=== PATIENT | male | born 1990 | race Caucasian/White ===

== ENCOUNTER 2016-06-15 09:27 | Emergency (ER) | payer SELFPAY ==
--- NOTE | 2016-06-15 11:44 | ED NURSING NOTES ---
Clinical Report - Nurses [facility] [address] [place] [address] 06/15/2016 9:27 Patient: YARED JAY TRIAGE Triage time 09:30. Acuity: LEVEL 3. Chief Complaint: DIZZINESS and NEAR-SYNCOPE. Alert. FARTUN COMA SCORE: Fartun Coma Scale: 15- eyes open spontaneously (4); best verbal response- oriented x 4 (5); best motor response- obeys commands (6). --09:38 Genie Preciado R.N. 09:30 06/15/16. BP: 106/64. HR: 84. RR: 20. O2 saturation: 98%. Temp: 98.4 F. Pain level now 5/10. --09:38 Genie Preciado R.N. Weight: 65.7 kg. Height/Length: 69 inches. BMI: 21.4. --09:38 Genie Preciado R.N. Medications Suboxone Sublingual. --09:32 Genie Preciado R.N. Allergies Penicillins. --09:32 Genie Preciado R.N. History Arrived by EMS, and from work. Historian: patient. This started just prior to arrival. ( patient had near syncope episode while at work. They just finished loading truck and patient was just sitting in the truck when suddenly got really dizzy and really hot). He has had nausea, a headache and weakness and experienced syncope. 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 Has used on and off for the past 9 years. Trying to get clean on his own. Took saboxone he had left over). SURGERY HX: ( rt arm re construction). SOCIAL HX: Current every day heavy tobacco smoker (cigarette)- less than 1 pack per day. History of drug use: heroin, methamphetamines. Recently used drugs days ago. (recently 4). He has not traveled outside the [place] (hep c positive). --09:38 Genie Preciado R.N. PROBLEMS: Narcotic Dependence. --09:34 Genie Preciado R.N. PHYSICAL ASSESSMENT To room via stretcher. GENERAL / NEURO / PSYCH: Oriented X 4. Appears anxious. Alert. Speech within normal limits. HEENT: Pupils equal, round and reactive to light. RESPIRATORY: Breath sounds within normal limits. Respirations not labored. CVS: Normal sinus rhythm noted. Capillary refill less than 2 seconds. GI / : Abdomen soft and nontender. SKIN: ( scabs all over from picking). --09:39 Genie Preciado R.N. NURSING PROGRESS NOTES Patient gowned. Head of bed elevated. Two patient identifiers checked. Call light placed in reach. Side rails up x 2. Bed placed in lowest position. Brakes of bed on. Patient ready for evaluation- chart flagged and ED physician notified. --09:41 Genie Preciado R.N. 09:50 06/15/2016 One (1) unsuccessful IV access attempt including the right forearm. Applied bandaid and manual pressure. --09:50 Geetha Jacobson R.N. 09:55 06/15/2016 Site #1 started via IV in the left forearm with an 22g angiocath; one attempt. Blood drawn: rainbow set. Saline lock flushed. --10:00 Genie Preciado R.N. 09:56 06/15/2016 Started bag #1 1000 mL IV Fluids IV NS (Saline); at 1000 mL/hr via site #1 --10:01 Genie Preciado R.N. EKG time: (0939 AM). EKG was performed by a tech and shown to the ED physician. --10:04 Genie Preciado R.N. <<STRICKEN ENTRY-- 10:07 06/15/16. --10:09 Magali Fitzgerald --END STRIKE>> Correction --10:11 Magali Fitzgerald 10:07 06/15/16. BP: 106/56 taken while lying. HR: 90. --10:09 Magali Fitzgerald <<STRICKEN ENTRY-- 10:09 06/15/16. --10:09 Magali Fitzgerald --END STRIKE>> Correction --10:11 Magali Fitzgerald 10:17. BP: 113/57 taken while sitting. HR: 89. --10:09 Magali Fitzgerald 10:09 06/15/16. BP: 111/60 taken while standing. HR: 95. --10:11 Magali Fitzgerald 10:46 06/15/16. ( patient unable to give urine sample. Given water per Physician s verbal consent). --10:46 Genie Preciado R.N. 11:06 06/15/2016 IV Fluids IV NS Discontinued: bag #1 infused. Total amount infused: 1000 mL. IV patency established IV site checked: no pain, redness, or swelling IV flushed thoroughly. --11:16 Genie Preciado R.N. 11:23 06/15/16. Patient ID band checked for patient name and birthdate: patient confirmed urine collected with return of yellow-colored clear urine; sample sent to lab. Specimen labeled in the presence of the patient. ( patient up to use bathroom. Back in bed now, resting. Will cont to monitor). --11:23 Genie Preciado R.N. 10:45 06/15/16. BP: 115/60. HR: 80. RR: 16. O2 saturation: 100%. Pain level now: 0/10. --11:27 Genie Preciado R.N. 11:29 06/15/16. --11:29 Genie Preciado R.N. 11:15 06/15/16. BP: 95/43 (regular adult cuff) taken on the right arm, while lying. HR: 78. RR: 17. O2 saturation: 99%. Pain level now: 0/10. --11:29 Genie Preciado R.N. DISPOSITION / DISCHARGE 11:46 06/15/2016 Site #1 removed upon discharge. Catheter intact. --11:51 Edwin Hoffmann R.N. 11:51 06/15/16. Condition at departure: improved. The goals identified in the patient's plan of care were met. No learning barriers present. Discharge instructions provided and reviewed with the patient. Reviewed warnings. Reviewed medication(s). Treatments reviewed. Patient verbalized understanding. Written instructions provided in Sierra Leonean. The patient was discharged by the physician. He was discharged home. He left the Emergency Department ambulatory and via private vehicle. FALL RISK ASSESSMENT: Fall risk assessment completed. No fall risk identified. --11:51 Edwin Hoffmann R.N. 11:51 06/15/16. BP: 102/68. HR: 72. RR: 16. O2 saturation: 99% on room air. Temp: 98.1 F (oral). --11:51 Edwin Hoffmann R.N. 11:52 06/15/16. Departure time: 11:52. --11:52 Edwin Hoffmann R.N. Locked/Released at 06/15/2016 11:52 by Edwin Hoffmann R.N.
--- NOTE | 2016-06-15 11:44 | ED CLINICAL REPORT ---
Clinical Report - Physicians/Mid Levels [facility] [address] [place] [address] 06/15/2016 9:27 Patient: YARED JAY Time Seen: 925. Arrived- By ambulance. Historian- patient. HISTORY OF PRESENT ILLNESS Chief Complaint: NEAR-SYNCOPE. Is no longer unconscious. He has recovered. This occurred today. It was abrupt in onset and has been intermittent. Event was witnessed. The patient had preceding symptoms of light-headedness. No preceding symptoms of chest pain or abdominal pain. Did not feel faint or collapse. No loss of consciousness, seizure activity, incontinence or apnea noted. Had a single episode. The episode was brief and lasted minutes. No injuries noted. He currently has constant, generalized weakness. (states he is trying to get clean from heroin and meth. states the last time he used was about 4 days ago. Has nausea, vomiting, and diarrhea. Has not been eating/drinking well due to the symptoms.). Similar symptoms previously: Several times. Recent medical care: Not recently seen/assessed. REVIEW OF SYSTEMS No chest pain, palpitations, black stools, bloody stools or skin rash. All systems otherwise negative, except as recorded above. PAST HISTORY See nurses notes. SOCIAL HISTORY Never smoker. History of drug use. Is a recovering addict. No alcohol use. No recent travel. Is a local resident. FAMILY HISTORY (no family history of sudden or premature heart problems). ADDITIONAL NOTES The nursing notes have been reviewed. PHYSICAL EXAM Vital Signs: 06/15/2016 09:30 BP: 106/64. HR: 84. RR: 20. O2 saturation: 98%. Temp: 98.4 F. Blood pressure normal. Oxygen saturation normal. Appearance: Alert. No acute distress. Eyes: Pupils equal, round and reactive to light. No nystagmus. Extraocular movements normal. ENT: Normal ENT inspection. TM's normal. Mildly dry mucous membranes present. Pharynx normal. Neck: Normal inspection. Neck supple. CVS: Normal heart rate and rhythm. Heart sounds normal. Pulses normal. No cardiac murmur. Respiratory: No respiratory distress. Breath sounds normal. No rales, wheezes or rhonchi. Abdomen: Soft and nontender. No organomegaly. Skin: Skin warm and dry. Normal skin color. No rash. Normal skin turgor. Extremities: Extremities exhibit normal ROM. No lower extremity edema. Neuro: Alert. Oriented X 3. Mood/affect normal. Cranial nerves normal (as tested). No cerebellar findings. No motor deficit. No sensory deficit. Reflexes normal. LABS, X-RAYS, AND EKG EKG: No acute process. No acute ischemia. Normal EKG. Normal sinus rhythm. Rate: 85. Normal P waves. Normal PETE. Normal QRS complex. Normal axis. Normal ST and T waves, QT and QTc. The study has been interpreted contemporaneously. The study has been independently viewed by me. The EKG appears to be a good tracing. Laboratory Tests: UA-Culture if indicated: (MAYRA: 06/15/2016 00:01) ( [facility] 06/15/2016 11:35) Final results Test Result Flag Units (Reference) URINE COLOR YELLOW URINE APPEARANCE CLEAR URINE GLUCOSE NEGATIVE (NEGATIVE) URINE BILIRUBIN NEGATIVE (NEGATIVE) URINE KETONE NEGATIVE (NEGATIVE) URINE SPECIFIC GRAVITY <= 1.005 L (1.010-1.030) URINE PH 6.0 (5.0-8.0) URINE PROTEIN NEGATIVE (NEGATIVE) URINE UROBILINOGEN 0.2 EU/dL (0.2-1.0) URINE NITRITE NEGATIVE (NEGATIVE) URINE BLOOD NEGATIVE (NEGATIVE) URINE LEUK ESTERASE NEGATIVE (NEGATIVE) URINE RBC NONE SEEN rbc/hpf (0-1) URINE WBC NONE SEEN wbc/hpf (0-1) URINE EPITHELIAL CELLS NONE SEEN EPI/hpf (0-5) URINE BACTERIA NONE SEEN (NONE SEEN) URINE COMMENT CULT NOT INDICATED URINE CULTURES ARE SET-UP BASED ON THE FOLLOWING CRITERIA:POSITIVE NITRITEPOSITIVE LEUKOCYTE ESTERASEGREATER THAN 10 WHITE BLOOD CELLSMODERATE (2+) OR GREATER BACTERIA CBC w Diff: (MAYRA: 06/15/2016 09:55) ( [facility] 06/15/2016 10:10) Final results Test Result Flag Units (Reference) WHITE BLOOD COUNT 9.1 K/uL (4.5-11.5) RED BLOOD COUNT 5.12 M/uL (4.50-5.90) HEMOGLOBIN 15.2 gm/dL (13.5-17.5) HEMATOCRIT 45.6 % (41.0-53.0) MEAN CELL VOLUME 89 fL (80-100) MEAN CORPUSCULAR HGB 30 pg (26-34) MEAN CORPUSCULAR HGB CONC 33 g/dL (31-37) RED CELL DISTRIBUTION WIDTH 12.6 % (11.6-14.8) PLATELET COUNT 257 K/uL (150-400) NEUTROPHIL % 68.8 % (50-75) LYMPH % 19.7 L % (25-40) MONO % 8.8 % (3-14) EOSINOPHIL % 2.2 % (0-4) BASOPHIL % 0.5 % (0-2) Urine Drug Screen: (MAYRA: 06/15/2016 00:01) ( MsgRcvd 06/15/2016 11:38) Final results Test Result Flag Units (Reference) AMPHETAMINE/METHAMPHETAMINE NEGATIVE (NEGATIVE) BARBITURATE NEGATIVE (NEGATIVE) BENZODIAZEPINE NEGATIVE (NEGATIVE) CANNABINOID POSITIVE H (NEGATIVE) COCAINE NEGATIVE (NEGATIVE) ECSTASY NEGATIVE (NEGATIVE) METHADONE NEGATIVE (NEGATIVE) OPIATE NEGATIVE (NEGATIVE) The urine drug screen is a qualitative screening test fordrug overdose and abuse. All screen results should beconsidered as presumptive.Drugs screened for are as follows:BenzodiazepinesCocaineAmphetamines/MetamphetaminesTHC (Tetrahydrocannabinol)OpiatesBarbituratesEcstasyMethadonePositive results are unconfirmed. For confirmation, notifythe lab for the specimen to be sent to the reference lab.All confirmations must be performed by a differentmethodology.The ingestion of natural herbal and plant productscontaining Ephedra/Ephedra metabolites can produce in urineone or more substances capable of cross reacting withamphetamine/methamphetamine immunoassays. These testsprovide a preliminary result only. A more specificalternative chemical method must be used to obtain aconfirmed analytical result. CMP: (MAYRA: 06/15/2016 09:55) ( MsgRcvd 06/15/2016 10:39) Final results Test Result Flag Units (Reference) GLUCOSE 154 H mg/dL (70-110) BUN 10 mg/dL (7-18) CREATININE 1.0 mg/dL (0.6-1.3) Estimated GFR >60 mL/min Estimated GFR- >60 mL/min Note: Persistent reduction over 3 months in eGFR<60 mL/min/1.73 m2 defines CKD. Patients with eGFR values>=60 mL/min/1.73 m2 may also have CKD if evidence ofpersistent proteinuria. Additional information may be foundat www.kidney.org. SODIUM 142 mmol/L (136-145) POTASSIUM 3.4 L mmol/L (3.5-5.1) CHLORIDE 104 mmol/L (98-107) CARBON DIOXIDE 27 mmol/L (21-32) CALCIUM 8.5 mg/dL (8.5-10.1) TOTAL PROTEIN 7.1 g/dL (6.4-8.2) ALBUMIN 3.0 L g/dL (3.3-5.0) BILIRUBIN, TOTAL 0.5 mg/dL (0.0-1.0) ALKALINE PHOSPHATASE 87 U/L (46-116) AST (SGOT) 21 U/L (15-37) ALT (SGPT) 28 U/L (12-78) . PROGRESS AND PROCEDURES Course of Care: the patient is a pleasant 25-year-old male with past medical history significant for substance abuse who is trying to come clean. Patient reports that he last used proximally 4 days ago. Patient reports nausea, vomiting, diarrhea. At this time I'll actually abnormality or imbalance or dehydration would be the most likely diagnosis for the patient's reported near syncopal event. No injury noted. Patient is nontoxic in appearance. Vital signs are noted to be unremarkable here in the emergency department. Patient is agreeable to treatment plan. IV fluids have also been ordered. Work up is noted to be unremarkable. A lecture was noted to be within normal limits. Glucose is slightly elevated at just [id number]. No evidence of ketosis. Patient is monitored here in the emergency department. Patient has been sinus without any abnormalities throughout his stay here. EKG is unremarkable. Do not fill patient is being admitted to the hospital require further ento. Feel symptoms are due to dehydration and withdrawal symptoms. Discussed the patient is workup here in the emergency department including diagnosis, home care, follow-up, and return precautions. All questions have been answered. The patient expressed understanding of these instructions and was agreeable to them. I plotted the patient's efforts in trying to come clean from substance abuse. Cautioned patient in regards to methadone and Suboxone. Patient states that he does not want to be on methadone or Suboxone. Patient states He has tried those in the past and does not like it. Disposition: Discharged. Condition: good. CLINICAL IMPRESSION Near syncope .12 lead EKG performed. (acute). Moderate nausea with vomiting. Diarrhea (acute). Mild dehydration (acute). Narcotic withdrawal (acute). INSTRUCTIONS Warnings: GENERAL WARNINGS: Return or contact your physician immediately if your condition worsens or changes unexpectedly, if not improving as expected, or if other problems arise. SPECIFICALLY, return if you develop chest pain, fluttering sensation in your chest, lightheadedness, fainting, numbness, weakness or extreme fatigue. Your Current Medications: CONTINUE TAKING THE FOLLOWING MEDICATIONS: Suboxone Sublingual. Prescription Medications: Zofran (orally disintegrating tablets) 4 mg: take 1 orally every 8 hours as needed for nausea and vomiting. Dispense ten (10). No refill. Substitution is permissible. OTC Medications: Imodium (available over the counter): take according to label instructions. Follow-up: Return to the emergency department as needed. Follow up with your doctor in three days. Reason for referral: recheck today's concerns. Summary of care provided to patient via paper. Screening today revealed the patient's blood pressure to be in the normal range. The patient should follow up with a primary care provider for blood pressure management. Understanding of the discharge instructions verbalized by patient. (Electronically signed by Jer Louis Dr. 06/15/2016 11:51)
--- NOTE | 2016-06-15 11:44 | ED ORDER SUMMARY ---
..... Patient: YARED JAY OrderSheet [facility] VisitID: [id number] [address] [place] [address] 25y, M Registration Date/Time: 06/15/2016 ORDER SHEET Weight: 65.7 kg Allergies: Penicillins GENERAL ORDERS: Step Down Specialist (Continuous) (dizzy) (:06/15/2016 Darrius Guajardo) (Ack 9:38 LNations ER Tech1) (9:40 KHoerner) CBC w Diff Urgent (:06/15/2016 Darrius Guajardo) (Ack 9:38 LNations ER Tech1) (11:19 KHoerner) CMP Urgent (:06/15/2016 Darrius Guajardo) (Ack 9:38 LNations ER Tech1) (11:19 KHoerner) UA-Culture if indicated Urgent (:06/15/2016 Darrius Guajardo) (Ack 9:38 LNations ER Tech1) (11:19 KHoerner) Urine Drug Screen Urgent (:06/15/2016 Darrius Guajardo) (Ack 9:38 LNations ER Tech1) (11:19 KHoerner) EKG - ER Stat (:06/15/2016 Darrius Guajardo) (Ack 9:38 LNations ER Tech1) (9:40 KHoerner) Pulse oximeter (:06/15/2016 Darrius Guajardo) (Ack 9:38 LNations ER Tech1) (9:40 KHoerner) Vitals - Orthostatic (:06/15/2016 Darrius Guajardo) (Ack 9:38 LNations ER Tech1) (10:07 KHoerner) MEDICATION ORDERS: IV FLUIDS: IV NS : initial bolus 1000 mL (1000 mL/hr), then none - for X1 (NOW) (:06/15/2016 Darrius Guajardo) (Ack 9:47 TChapman R.N.) (10:01 TChapman R.N.) ORDER SHEET NOTES: [Electronically signed by Jer Louis Dr. (11:51 06/15/2016)] [Electronically signed by Edwin Hoffmann R.N. (11:52 06/15/2016)] [Electronically locked/signed by Edwin Hoffmann R.N. (11:52 06/15/2016)]
--- NOTE | 2016-06-15 11:44 | ED ORDER SUMMARY ---
..... Patient: YARED JAY OrderSheet [facility] VisitID: [id number] [address] [place] [address] 25y, M Registration Date/Time: 06/15/2016 ORDER SHEET Weight: 65.7 kg Allergies: Penicillins GENERAL ORDERS: Pediatric Allergist (Continuous) (dizzy) (:06/15/2016 Darrius Guajardo) (Ack 9:38 LNations ER Tech1) (9:40 KHoerner) CBC w Diff Urgent (:06/15/2016 Darrius Guajardo) (Ack 9:38 LNations ER Tech1) (11:19 KHoerner) CMP Urgent (:06/15/2016 Darrius Guajardo) (Ack 9:38 LNations ER Tech1) (11:19 KHoerner) UA-Culture if indicated Urgent (:06/15/2016 Darrius Guajardo) (Ack 9:38 LNations ER Tech1) (11:19 KHoerner) Urine Drug Screen Urgent (:06/15/2016 Darrius Guajardo) (Ack 9:38 LNations ER Tech1) (11:19 KHoerner) EKG - ER Stat (:06/15/2016 Darrius Guajardo) (Ack 9:38 LNations ER Tech1) (9:40 KHoerner) Pulse oximeter (:06/15/2016 Darrius Guajardo) (Ack 9:38 LNations ER Tech1) (9:40 KHoerner) Vitals - Orthostatic (:06/15/2016 Darrius Guajardo) (Ack 9:38 LNations ER Tech1) (10:07 KHoerner) MEDICATION ORDERS: IV FLUIDS: IV NS : initial bolus 1000 mL (1000 mL/hr), then none - for X1 (NOW) (:06/15/2016 Darrius Guajardo) (Ack 9:47 TChapman R.N.) (10:01 TChapman R.N.) ORDER SHEET NOTES: [Electronically signed by Jer Louis Dr. (11:51 06/15/2016)] [Electronically signed by Edwin Hoffmann R.N. (11:52 06/15/2016)] [Electronically locked/signed by Edwin Hoffmann R.N. (11:52 06/15/2016)]
--- NOTE | 2016-06-15 11:52 | ED DISCHARGE INSTRUCTIONS ---
Patient: YARED JAY General Instructions Located Within [facility] VisitID: [id number] [place] [address] 25y, M Registration Date/Time: 06/15/2016 Near syncope .12 lead EKG performed. (acute). Moderate nausea with vomiting. Diarrhea (acute). Mild dehydration (acute). Narcotic withdrawal (acute). INSTRUCTIONS Warnings: GENERAL WARNINGS: Return or contact your physician immediately if your condition worsens or changes unexpectedly, if not improving as expected, or if other problems arise. SPECIFICALLY, return if you develop chest pain, fluttering sensation in your chest, lightheadedness, fainting, numbness, weakness or extreme fatigue. Your Current Medications: CONTINUE TAKING THE FOLLOWING MEDICATIONS: Suboxone Sublingual. Prescription Medications: Zofran (orally disintegrating tablets) 4 mg: take 1 orally every 8 hours as needed for nausea and vomiting. Dispense ten (10). No refill. Substitution is permissible. OTC Medications: Imodium (available over the counter): take according to label instructions. Follow-up: Return to the emergency department as needed. Follow up with your doctor in three days. Reason for referral: recheck today's concerns. Summary of care provided to patient via paper. Screening today revealed the patient's blood pressure to be in the normal range. The patient should follow up with a primary care provider for blood pressure management. Understanding of the discharge instructions verbalized by patient. ADDITIONAL INFORMATION Near-Fainting:Uncertain Cause Fainting (syncope) is a temporary loss of consciousness ("passing out"). It occurs when blood flow to the brain is reduced. Near-fainting ("near-syncope") is like fainting, but you do not fully "pass out." The common minor causes of near fainting include sudden fear, pain, emotional stress, overexertion, or quickly standing up after sitting or lying for a long time. The more serious causes for near fainting are due to either a very slow or very fast heart beat, dehydration, anemia, blood loss, problems related to the heart, or taking too much high blood pressure medicine. The exact cause of your episode is not certain. More tests may be required. Therefore, it is important that you follow up with your doctor as advised. Home Care: 1) Rest today. Resume your normal activities as soon as you are feeling back to normal. 2) If you become light-headed or dizzy, lie down right away or sit with your head between your knees. 3) Because we do not know the exact cause of your near fainting spell, another spell could occur without warning. Therefore, do not drive a car or use dangerous equipment. D o not take a bath alone (use a shower instead). Do not swim alone. You can resume these activities when your doctor says that you are no longer in danger of having a near fainting spell. 4) Stay well hydrated by drinking enough fluid each day. Follow Up with your doctor as instructed. Get Prompt Medical Attention if any of the following occur: -- Another fainting spell occurs, and it is not explained by the common causes listed above -- Chest, arm, neck, jaw, back or abdominal pain -- Shortness of breath -- Weakness, tingling or numbness in one side of the face, one arm or leg -- Slurred speech, confusion, trouble walking or seeing -- Seizure -- Blood in vomit, stools (black or red color) -- (In women) unexpected vaginal bleeding Dehydration (Adult) Dehydration occurs when your body loses too much fluid. This may be the result of vomiting a lot or from diarrhea,sweating a lot, or a high fever. It may also happen if you dont drink enough fluid when youre sick. Misuse of diuretics (water pills) can also be a cause. Symptoms include thirst and feeling dizzy, weak, fatigued, or very drowsy. The diet described below is usually enough to treat most cases. Sometimes you may needmedicine. Home Care Follow these guidelines for home care: Drink at least 12 8-ounce glasses of fluid every day to overcome the dehydration. Fluid may include water; orange juice; lemonade; apple, grape, and cranberry juice; clear fruit drinks; electrolyte replacement and sports drinks; and teas and coffee without caffeine. If you have been diagnosed with a kidney disease, ask your doctor how much and what types of fluids you should drink to prevent dehydration. If you have kidney disease, drinking too much fluid can cause it build up in the your body and be dangerous to your health. If you have fever, muscle aching, or headache from a viral syndrome, you may useacetaminophen or ibuprofen, unless another medicine was prescribed for this.If you have chronic liver or kidney disease or ever had a stomach ulcer or GI bleeding, talk with your doctor before using these medicines. Don't take aspirin if you are younger than 18 and are ill with a fever.Aspirin raises the chance forsevere liver injury. Follow-up care Follow up with your health care provider if you don't get better in the next 24 to 48 hours. When to seek medical care Get prompt medical attention if any of theseoccur: Continued vomiting (cant keep liquids down) Frequent diarrhea (more than 5 times a day); blood (red or black color) or mucus in diarrhea Blood in vomit or stool Swollen abdomen or increasing abdominal pain Weakness, dizziness, or fainting Unusually drowsy or confused Reduced urine output or extreme thirst Fever of 100.4 F (38 C) oral or higher that does not get better with fever medication Diarrhea, Uncertain Cause (Adult, Report Pending) Diarrhea has several possible causes. Commonstomach fluis caused by a virus. Food poisoning, bacteria or parasites are other causes for diarrhea. Only diarrhea caused by bacteria or parasites requires treatment with an antibiotic. Diarrhea from a virus or food poisoning improves with simple home treatment. A stool sample is needed to make the diagnosis of an infection with bacteria or parasites. Up to three stool specimens may be required to diagnose This may take up to two days to get the result. It may be necessary to wait until the stool test is complete to make the diagnosis and select the best antibiotic to prescribe. Home Care: If symptoms are severe, rest at home for the next 24 hours or until you are feeling better. You may use acetaminophen (Tylenol) or ibuprofen (Motrin, Advil) to control fever, unless another medicine was prescribed. [NOTE: If you have chronic liver or kidney disease or ever had a stomach ulcer or GI bleeding, talk with your doctor before using these medicines.] (Aspirin should never be used in anyone under 18 years of age who is ill with a fever. It may cause severe liver damage.) Avoid tobacco, caffeine and alcohol, which may worsen your symptoms. If anti-diarrhea medicine was prescribed, take this only as directed. Sometimes anti-diarrhea medicine can make your condition worse if the cause is an infectious diarrhea. Therefore, anti-diarrhea medicine should not be taken for this condition unless advised by your doctor. During The First 12-24 Hours follow the diet below: BEVERAGES: Sport drinks like Gatorade, soft drinks without caffeine; ty jose, mineral water (plain or flavored), decaffeinated tea and coffee. SOUPS: Clear broth, consomm and bouillon DESSERTS: Plain gelatin (Jell-O), popsicles and fruit juice bars. During The Next 24 Hours you may add the following to the above: Hot cereal, plain toast, bread, rolls, crackers Plain noodles, rice, mashed potatoes, chicken noodle or rice soup Unsweetened canned fruit (avoid pineapple), bananas Limit fat intake to less than 15 grams per day by avoiding margarine, butter, oils, mayonnaise, sauces, gravies, fried foods, peanut butter, meat, poultry and fish. Limit fiber; avoid raw or cooked vegetables, fresh fruits (except bananas) and bran cereals. Limit caffeine and chocolate. No spices or seasonings except salt. During The Next 24 Hours Gradually resume a normal diet, as you feel better and your symptoms lessen. Follow Up with your doctor or as advised if you are not improving over the next two days. If you were asked to bring a specimen from home, bring the sample on the day of collection. You may call in 2 days (or as directed) for the results. Get Prompt Medical Attention if any of the following occur: Increasing abdominal pain or constant lower right abdominal pain Continued vomiting (unable to keep liquids down) Frequent diarrhea (more than 5 times a day) Blood in vomit or stool (black or red color) Reduced oral intake Dark urine, reduced urine output Weakness, dizziness, fainting Drowsiness, confusion, stiff neck or seizure Fever of 100.4F (38C) oral or higher, not better with fever medication New rash Ondansetron Oral disintegrating tablet What is this medicine? ONDANSETRON (on [employer] se kirsten) is used to treat nausea and vomiting caused by chemotherapy. It is also used to prevent or treat nausea and vomiting after surgery. How should I use this medicine? These tablets are made to dissolve in the mouth. Do not try to push the tablet through the foil backing. With dry hands, peel away the foil backing and gently remove the tablet. Place the tablet in the mouth and allow it to dissolve, then swallow. While you may take these tablets with water, it is not necessary to do so. Talk to your elevator tender regarding the use of this medicine in children. Special care may be needed. What side effects may I notice from receiving this medicine? Side effects that you should report to your doctor or health long term care phlebotomist as soon as possible: allergic reactions like skin rash, itching or hives, swelling of the face, lips, or tongue breathing problems dizziness fast or irregular heartbeat feeling faint or lightheaded, falls fever and chills swelling of the hands and feet tightness in the chest Side effects that usually do not require medical attention (report to your doctor or health long term care phlebotomist if they continue or are bothersome): constipation or diarrhea headache What may interact with this medicine? Do not take this medicine with any of the following medications: -apomorphine -cisapride -dofetilide -dronedarone -pimozide -thioridazine -ziprasidone This medicine may also interact with the following medications: -carbamazepine -phenytoin -rifampicin -tramadol -other medicines that prolong the QT interval (cause an abnormal heart rhythm) What if I miss a dose? If you miss a dose, take it as soon as you can. If it is almost time for your next dose, take only that dose. Do not take double or extra doses. Where should I keep my medicine? Keep out of the reach of children. Store between 2 and 30 degrees C (36 and 86 degrees F). Throw away any unused medicine after the expiration date. What should I tell my health care provider before I take this medicine? They need to know if you have any of these conditions: heart disease history of irregular heartbeat liver disease low levels of magnesium or potassium in the blood an unusual or allergic reaction to ondansetron, granisetron, other medicines, foods, dyes, or preservatives or trying to get breast-feeding What should I watch for while using this medicine? Check with your doctor or health long term care phlebotomist as soon as you can if you have any sign of an allergic reaction. You have been given the following additional information: Near Syncope, Unknown Dehydration (Adult) Diarrhea, Unk Cause (Adult) Report Pendg Ondansetron Oral disintegrating tablet (Electronically signed by Jer Louis Dr. 06/15/2016 11:51)
--- NOTE | 2016-06-15 11:53 | ED MAR SUMMARY ---
..... Medication Administration Record [facility] [address] [place] [address] Patient: YARED JAY Visit ID: [id number] 25y, M Weight: 65.7 kg Height/Length: 69 in BMI: 21.4 ALLERGIES: Penicillins Start 09:56 06/15/2016 Genie Preciado R.N., Stop 11:06 06/15/2016 Genie Preciado R.N. Medication Administered: IV NS (SALINE), Dose: IV Fluids, Rate: 1000 mL/hr, Dispensed: 1000 mL bag, Site: #1 left forearm. Medication Ordered: IV NS : initial bolus 1000 mL (1000 mL/hr), then none - for X1 (NOW).
--- NOTE | 2016-06-15 11:53 | ED MED RECONCILIATION SUMMARY ---
Patient: YARED JAY Medication Reconciliation Report [facility] VisitID: [id number] [address] [place] [address] 25y, M Registration Date/Time: 06/15/2016 Weight: 65.7 kg Height/Length: 69 in. BMI: 21.4 ALLERGIES: Penicillins The patient's Home Medications are listed below: CONTINUE TAKING THE FOLLOWING MEDICATIONS: Suboxone Sublingual The source(s) of the original Home Medication information: Not obtained. The following Medications were given to the patient in the Emergency Department: IV NS IV Fluids bolus 0, then 1000 mL/hr, administered: 06/15/2016 9:56:00 AM The following Medications were prescribed to the patient: Zofran (orally disintegrating tablets) 4 mg: take 1 orally every 8 hours as needed for nausea and vomiting. Dispense ten (10). No refill. Substitution is permissible. -- Jer Louis Dr. Imodium (available over the counter): take according to label instructions. -- Jer Louis Dr.
--- NOTE | 2016-06-15 11:53 | ED MED RECONCILIATION SUMMARY ---
Patient: YARED JAY Medication Reconciliation Report [facility] VisitID: [id number] [address] [place] [address] 25y, M Registration Date/Time: 06/15/2016 Weight: 65.7 kg Height/Length: 69 in. BMI: 21.4 ALLERGIES: Penicillins The patient's Home Medications are listed below: CONTINUE TAKING THE FOLLOWING MEDICATIONS: Suboxone Sublingual The source(s) of the original Home Medication information: Not obtained. The following Medications were given to the patient in the Emergency Department: IV NS IV Fluids bolus 0, then 1000 mL/hr, administered: 06/15/2016 9:56:00 AM The following Medications were prescribed to the patient: Zofran (orally disintegrating tablets) 4 mg: take 1 orally every 8 hours as needed for nausea and vomiting. Dispense ten (10). No refill. Substitution is permissible. -- Jer Louis Dr. Imodium (available over the counter): take according to label instructions. -- Jer Louis Dr.
--- NOTE | 2016-06-15 11:53 | ED MAR SUMMARY ---
..... Medication Administration Record [facility] [address] [place] [address] Patient: YARED JAY Visit ID: [id number] 25y, M Weight: 65.7 kg Height/Length: 69 in BMI: 21.4 ALLERGIES: Penicillins Start 09:56 06/15/2016 Genie Preciado R.N., Stop 11:06 06/15/2016 Genie Preciado R.N. Medication Administered: IV NS (SALINE), Dose: IV Fluids, Rate: 1000 mL/hr, Dispensed: 1000 mL bag, Site: #1 left forearm. Medication Ordered: IV NS : initial bolus 1000 mL (1000 mL/hr), then none - for X1 (NOW).
== END 2016-06-15 11:52 | disposition home or self-care (01) ==
LOC: ED SRH 09:27
DX: R55 Syncope and collapse (principal); R11.2 Nausea with vomiting, unspecified; R19.7 Diarrhea, unspecified; E86.0 Dehydration; F11.23 Opioid dependence with withdrawal; Z88.0 Allergy status to penicillin
CPT/HCPCS: 90004; 90100; 92760; 92761; 92762; 92763; 92764; 92765; 92766; 92767; 95059